=== PATIENT | male | born 1985 | race Caucasian/White ===

== ENCOUNTER 2020-03-01 13:17 | Emergency (ER) | payer MEDICAID, OTHER ==
[2020-03-01 14:13] VITALS: BP 125/83; PULSE 65
--- NOTE | 2020-03-01 14:57 | EDM.PDOC ---
ED HPI GENERAL MEDICAL PROBLEM - General Chief Complaint: Gastrointestinal Problem Stated Complaint: HEMORRHOID BLEEDING X 4 HRS Time Seen by Provider: 03/01/20 14:39 Source of Information: Reports: Patient History Limitations: Reports: No Limitations - History of Present Illness INITIAL COMMENTS - FREE TEXT/NARRATIVE: Mr. Barrett is a very pleasant 34-year-old gentleman who now presents to the ED with bleeding from a hemorrhoid after it spontaneously burst around 10:00 this morning. He states that when it did so, he discharged a fairly large blood clot, and that he has had bleeding since. The patient states that he has had hemorrhoidal itching and pain since Tuesday or Tuesday, 02/25/2020 or 02/26/2020, with a palpable hemorrhoid. He has been applying Preparation H along with a prescription hemorrhoidal cream whose name he does not recall. The patient states that he has had hemorrhoidal problems in the past, and has even had a lancing of a hemorrhoid in an ED in the past, although he has not previously undergone a hemorrhoidectomy or banding. No recent fever. Here in the ED, the patient is found to be hemodynamically stable, afebrile, saturating 97% on room air. Other than his hemorrhoidal pain, the patient denies having a recent fever, chills, sore throat, ear pain, nasal or sinus congestion, cough, dyspnea, chest pain, palpitations, nausea, vomiting, constipation, diarrhea, abdominal pain, urinary symptoms, recent weight gain or weight loss, recent bloody bowel movements or black bowel movements, recent joint aches, headaches, or rashes. The patient's PCP is Dr. Bhupendra Melton, in [place]. His Adult Neurologist is Dr. Skip Avelar. His EP Adult Neurologist is Dr. Ananda Sidhu. He has not received an influenza vaccine this season, and declined an offer to receive one here today. Rectal Pain Score (Numeric/FACES): 8 - Related Data Allergies Allergy/AdvReac Type Severity Reaction Status Date / Time No Known Allergies Allergy Verified 03/01/20 14:12 Home Meds: Home Meds Omeprazole 40 mg PO DAILY 03/01/20 [History] Past Medical History Cardiovascular History: Reports: Arrhythmia Gastrointestinal History: Reports: GERD, Hemorrhoids - Past Surgical History Cardiovascular Surgical History: Reports: Cardiac Ablation (Jun 2019), Pacer (Oct 2016) GI Surgical History: Reports: Colonoscopy, EGD, Hernia, Inguinal (right) Social & Family History - Tobacco Use Tobacco Use Status *Q: Current Every Day Tobacco User Tobacco Use Within Last Twelve Months: Smokeless Tobacco (Chews 1/2 can a week), Vaping (Nicotine) Years of Tobacco use: 14 Packs/Tins Daily: 0.5 Packs/Tins Daily Comment: Down from 2 ppd - Caffeine Use Caffeine Use: Reports: None - Alcohol Use Alcohol Use History: Yes Alcohol Use Frequency: Socially (occasionally to excess) - Recreational Drug Use Recreational Drug Use: No - Living Situation & Occupation Living situation: Reports: , with Spouse, with Family (2 kids) Occupation: Employed (newspaper delivery driver) ED ROS GENERAL - Review of Systems Review Of Systems: Comprehensive ROS is negative, except as noted in HPI. ED EXAM, GI/ABD - Physical Exam Exam: See Below Exam Limited By: No Limitations General Appearance: Alert, WD/WN, No Apparent Distress Rectal (Males) Exam: Other (A very small non-thrombosed right-sided hemorrhoid is noted, with a punctate hole and some blood seen on the anus. No active bleed ing. The area is tender to palpation. No other abnormalities seen.) Course - Vital Signs Last Recorded V/S: Last Vital Signs Temp 36.6 C 03/01/20 14:10 Pulse 65 03/01/20 14:10 Resp 16 03/01/20 14:10 BP 125/83 03/01/20 14:10 Pulse Ox 97 03/01/20 14:10 - Re-Assessments/Exams Free Text/Narrative Re-Assessment/Exam: 03/01/20 14:52 As above, the patient had a palpable and likely thrombosed hemorrhoid which spontaneously ruptured this morning, discharging a sizable clot. On examination at this time, there is only a very tiny nonthrombosed although still somewhat tender hemorrhoid on the right. Going forward, I am recommending that the patient take sitz baths. He can apply his prescription cream, if he likes, but it is not really necessary. I will provide him a note to be off work until Tuesday. Departure - Departure Time of Disposition: 14:53 Disposition: Home, Self-Care 01 Condition: Good Clinical Impression: Hemorrhoid - Discharge Information *PRESCRIPTION DRUG MONITORING PROGRAM REVIEWED*: Not Applicable *COPY OF PRESCRIPTION DRUG MONITORING REPORT IN PATIENT CARLOS: Not Applicable Instructions: Hemorrhoids, [id number] Referrals: Bhupendra Melton MD [Primary Care Provider] - Skip Avelar DO [Ordering Only Provider] - Ananda Sidhu [Ordering Only Provider] - Forms: ED Department Discharge, ED Return to Work/School Form Additional Instructions: You were seen in the emergency room after a hemorrhoid that has been bothering you this week spontaneously ruptured, passing a blood clot. On examination, the hemorrhoid is already decompressed, therefore no further treatment was necessary. We recommend that you perform sitz baths up to 5 times a day, for the next few days, if possible. You may take [id number] ibuprofen as needed for discomfort. You can continue to apply the previously prescribed hemorrhoid cream, if you like, but it is not really necessary at this point. A note to be off work until 03/04/2020, has been provided to you. If any other problems, please do not hesitate to return to the ER. Sepsis Event Note (ED) - Evaluation Sepsis Screening Result: No Definite Risk - Focused Exam Vital Signs: Vital Signs Temp Pulse Resp BP Pulse Ox 03/01/20 14:10 36.6 C 65 16 125/83 97
== END 2020-03-01 15:01 | disposition home or self-care (01) ==
LOC: JD.ED 13:17
DX: K64.9 Unspecified hemorrhoids (principal); K21.9 Gastro-esophageal reflux disease without esophagitis; F17.210 Nicotine dependence, cigarettes, uncomplicated; Z79.899 Other long term (current) drug therapy
CPT/HCPCS: 99282